=== PATIENT | female | born 1980 | race Caucasian/White ===

== ENCOUNTER 2021-09-28 10:17 | Emergency (ER) | payer BC ==
[2021-09-28] MEDS ORDERED: Sodium Chloride 0.9% 10 ML Syringe FLUSH PRN (10:30)
[2021-09-28] MEDS ORDERED: Ondansetron 4 MG/2 ML SDV IVPUSH ONE (10:30)
[2021-09-28] MEDS ORDERED: Morphine 2 MG/ML SYRINGE IVPUSH ONE (10:30)
[2021-09-28] MEDS ORDERED: Sodium Chloride 0.9% 1,000 ML IV ONE (10:30)
[2021-09-28] MEDS ORDERED: Ketorolac 30 MG/ML SDV IVPUSH ONE (10:30)
== END 2021-09-28 11:47 | disposition home or self-care (01) ==
LOC: FB.ED 10:17
DX: N20.0 Calculus of kidney (principal)
CPT/HCPCS: 36415; 74176; 80048; 81001; 81025; 85025; 96374; 96375; 99283; 99284-25; J1885; J2270; J2405; J3490; J7030